=== PATIENT | female | born 1985 | race Caucasian/White ===

== ENCOUNTER 2017-09-21 15:49 | Inpatient (IN) | payer OTHER ==
[2017-09-21] MEDS ORDERED: IBUPROFEN 600 MG TAB PO (17:30)
[2017-09-21] MEDS ORDERED: MISOPROSTOL 200 MCG TAB PR (17:30)
[2017-09-21] MEDS ORDERED: METHYLERGONOVINE 0.2 MG INJ IM (17:30)
[2017-09-21] MEDS ORDERED: LIDOCAINE 1% (MPF) 30 ML INJ INJ (17:30)
[2017-09-21] MEDS ORDERED: BUTORPHANOL 2 MG INJ IV (17:30)
[2017-09-21] MEDS ORDERED: OXYTOCIN 30 UNITS/LR 500 ML IV (17:30)
[2017-09-21] MEDS ORDERED: CARBOPROST 250 MCG INJ IM (17:30)
[2017-09-21] MEDS: LACTATED RINGER'S 1,000 ML IV ×2 (17:49→20:34)
[2017-09-21 18:46] LABS: ADD MAN DIFF? NO
[2017-09-21 18:49] LABS: WHITE BLOOD COUNT 7.5 10^3/ul (4.8-10.8)
[2017-09-21 18:49] LABS: BASOPHILS % 0.1 % (0.0-2.0); EOSINOPHILS % 0.3 % (0.0-7.0); HEMOGLOBIN 12.1 g/dl (12.0-16.0); LYMPHOCYTES # 1.8 10^3/ul (0.8-2.9); LYMPHOCYTES % 24.1 % (15.0-51.0); MEAN CORPUSCULAR HEMOGLOBIN 27.8 pg (29.0-33.0); MEAN CORPUSCULAR HGB CONC 33.6 g/dl (32.0-37.0); MEAN CORPUSCULAR VOLUME 82.6 fl (82.0-101.0); MEAN PLATELET VOLUME 10.8 fl (7.4-10.4); MONOCYTE # 0.4 10^3/ul (0.3-0.9); MONOCYTES % 5.3 % (0.0-11.0); NEUTROPHIL # 5.3 10^3/ul (1.6-7.5); NEUTROPHILS % 69.8 % (39.0-77.0); PLATELET COUNT 219 10^3/UL (140-415); RED BLOOD COUNT 4.36 10^6/ul (4.20-5.40); RED CELL DISTRIBUTION WIDTH 13.8 % (11.5-14.5)
[2017-09-21 19:19] LABS: PROTIME 12.2 Sec (11.9-14.9)
[2017-09-21 19:20] LABS: PARTIAL THROMBOPLASTIN TIME 25.4 Sec (25.0-35.0)
[2017-09-21 19:45] LABS: HEPATITIS B SURFACE ANTIGEN NEGATIVE (NEGATIVE)
[2017-09-21] MEDS ORDERED: OXYCODONE/ACETAMINOPHEN (5/325) TAB PO (20:30)
[2017-09-21] MEDS ORDERED: ONDANSETRON 4 MG INJ (20:50)
[2017-09-21] MEDS: ONDANSETRON 4 MG INJ IV (20:54)
[2017-09-21] MEDS ORDERED: ONDANSETRON 4 MG INJ IV (21:00)
[2017-09-21] MEDS ORDERED: DIPHENHYDRAMINE 50 MG INJ IV (21:00)
[2017-09-21] MEDS ORDERED: NALOXONE (0.4 MG/ML) INJ IV (21:00)
[2017-09-21] MEDS: FENTAnyl 2MCG/ML-ROPIV 0.2% 100 ML BAG EPI (21:30)
[2017-09-21] MEDS: OXYTOCIN 30 UNITS/LR 500 ML IV ×2 (23:21→23:53)
[2017-09-22] MEDS: LACTATED RINGER'S 1,000 ML IV (01:11)
[2017-09-22] MEDS ORDERED: CARBOPROST 250 MCG INJ IM (03:00)
[2017-09-22] MEDS ORDERED: MISOPROSTOL 200 MCG TAB PR (03:00)
[2017-09-22] MEDS ORDERED: DIBUCAINE 1% 30 GM OINT PR (03:00)
[2017-09-22] MEDS ORDERED: OXYTOCIN 30 UNITS/LR 500 ML IV (03:00)
[2017-09-22] MEDS ORDERED: METHYLERGONOVINE 0.2 MG INJ IM (03:00)
[2017-09-22] MEDS ORDERED: HYDROCODONE/APAP (5/325) TAB PO (03:00)
[2017-09-22] MEDS ORDERED: ACETAMINOPHEN 325 MG TAB PO (03:00)
[2017-09-22] MEDS: LACTATED RINGER'S 1,000 ML IV* ×3 (04:34→18:56)
[2017-09-22] MEDS: LANOLIN 7 GM TUBE TOP (05:24)
[2017-09-22] MEDS: BENZOCAINE 20% 56 ML SPRAY TOP (05:24)
[2017-09-22] MEDS: WITCH HAZEL/GLYCERIN PAD PR (05:24)
[2017-09-22] MEDS: IBUPROFEN 600 MG TAB PO ×3 (06:00→17:34)
[2017-09-22 07:45] LABS: ADD MAN DIFF? NO
[2017-09-22 07:55] LABS: BASOPHILS % 0.1 % (0.0-2.0); HEMATOCRIT 32.8 % (37.0-47.0); LYMPHOCYTES % 14.5 % (15.0-51.0); MEAN CORPUSCULAR HGB CONC 33.5 g/dl (32.0-37.0); MEAN CORPUSCULAR VOLUME 83.5 fl (82.0-101.0); MEAN PLATELET VOLUME 10.6 fl (7.4-10.4); MONOCYTE # 0.8 10^3/ul (0.3-0.9); MONOCYTES % 5.6 % (0.0-11.0); NEUTROPHILS % 79.3 % (39.0-77.0); PLATELET COUNT 186 10^3/UL (140-415); RED BLOOD COUNT 3.93 10^6/ul (4.20-5.40)
[2017-09-22 07:55] LABS: WHITE BLOOD COUNT 13.8 10^3/ul (4.8-10.8)
[2017-09-22] MEDS: SENNA/DOCUSATE NA (8.6MG/50MG) TAB PO ×2 (09:02→20:23)
[2017-09-22 21:05] LABS: RAPID PLASMA REAGIN NONREACTIVE (NR)
[2017-09-23] MEDS: LACTATED RINGER'S 1,000 ML IV* (02:56)
[2017-09-23] MEDS: IBUPROFEN 600 MG TAB PO ×2 (06:00)
[2017-09-23] MEDS: DIPHTH/TET/ACEL PERTUSS (ADULT) 0.5 ML VIAL IM* (09:00)
[2017-09-23] MEDS: SENNA/DOCUSATE NA (8.6MG/50MG) TAB PO (09:57)
== END 2017-09-23 14:55 | disposition home or self-care (01) | DRG 775 ==
LOC: OBT 15:49 → PP1 09-22 01:53 → L-D 15:51 → OBT 16:44 → L-D 16:44
PROVIDERS: Obstetrics & Gynecology
PROC: 10E0XZZ Delivery of Products of Conception, External Approach (ICD-10-PCS; principal; 2017-09-21)
DX: O80 Encounter for full-term uncomplicated delivery (principal); Z37.0 Single live birth; Z3A.39 39 weeks gestation of pregnancy
CPT/HCPCS: 62319; 85025; 85610; 85730; 86592; 86885; 86900; 86901; 87340